=== PATIENT | female | born 1945 | race Caucasian/White ===

== ENCOUNTER 2018-07-10 13:33 | Outpatient (CLI) | payer MEDICARE ==
--- NOTE | 2018-07-30 16:28 | MMO ---
Bilateral MAMMO Bilat Screen [facility]. CLINICAL HISTORY: Patient is 73 years old and is seen for screening. The patient has the following family history of breast cancer: sister, at age 69. The patient has no personal history of cancer. The patient has a history of left MRI guided core biopsy in 2016 - benign. VIEWS: The views performed were: bilateral craniocaudal with tomosynthesis and bilateral mediolateral oblique with tomosynthesis. FILMS COMPARED: The present examination has been compared to prior imaging studies performed at [facility] on 01/31/2012, 02/18/2013, 03/13/2014, 04/07/2016 and 04/03/2017. MAMMOGRAM FINDINGS: There are scattered fibroglandular densities. Finding 1: There are stable intramammary lymph nodes seen in both breasts. Finding 2: There are stable benign appearing calcifications seen in both breasts. There are no suspicious masses, suspicious calcifications, or new areas of architectural distortion. IMPRESSION: THERE IS NO MAMMOGRAPHIC EVIDENCE OF MALIGNANCY. A ROUTINE FOLLOW-UP MAMMOGRAM IN 1 YEAR IS RECOMMENDED. THE RESULTS OF THIS EXAM WERE SENT TO THE PATIENT. ACR BI-RADS Category 2 - Benign finding MAMMOGRAPHY NOTE: 1. A negative mammogram report should not delay a biopsy if a dominant of clinically suspicious mass is present. 2. Approximately 10% to 15% of breast cancers are not detected by mammography. 3. Adenosis and dense breasts may obscure an underlying neoplasm.
== END 2018-07-10 13:34 | disposition home or self-care (01) ==
LOC: BICMAMMO 13:33
PROVIDERS: ATTEND Physician Assistant Medical
DX: Z12.31 Encounter for screening mammogram for malignant neoplasm of breast (principal); Z80.3 Family history of malignant neoplasm of breast
CPT/HCPCS: 77063; 77067

== ENCOUNTER 2019-04-15 14:59 | Outpatient (CLI) | payer MEDICARE ==
--- NOTE | 2019-04-15 16:35 | CT ---
CT ABDOMEN AND PELVIS WITH AND WITHOUT IV CONTRAST ORAL CONTRAST WAS GIVEN: Indication: Left groin mass. Left lower quadrant pain and mass. Markers placed in the skin in the lef t lower quadrant. FINDINGS: Lung bases are clear. Review of the liver reveals a nonspecific hypodensity in the dome of the liver measuring in the 7 mm range. This is too small to adequately characterize. The spleen and pancreas are unremarkable. Stomach and duodenum unremarkable. Adrenal glands and kidneys unremarkable. Urinary bladder mildly distended and unremarkable. Small bowel loops appear normal. Colon is unremarkable. Aorta is normal caliber. No evidence of left lower quadrant mass. There are nonspecific inguinal lymph nodes bilaterally which appears symmetric. These inguinal lymph nodes measure up to 1.2 cm on both sides. Images through the pelvis reveal evidence of hysterectomy. IMPRESSION: 1. Tiny nonspecific low density lesion in the dome of the liver. This may represent a small hemangiom a as it does show suggestion of peripheral nodular enhancement. Suggest hepatic ultrasound for correl ation. 2. No acute intraabdominal process. 3. Nonspecific bilateral inguinal lymph nodes as noted above. POS: [facility]
== END 2019-04-15 15:00 | disposition home or self-care (01) ==
LOC: SCSCT 14:59
PROVIDERS: ATTEND Surgery
DX: R19.09 Other intra-abdominal and pelvic swelling, mass and lump (principal); K76.9 Liver disease, unspecified
CPT/HCPCS: 74178

== ENCOUNTER 2019-04-30 06:14 | Outpatient (CLI) | payer MEDICARE ==
[2019-04-30 12:11] LABS: #Basophils 0.1 thou/uL (0.0-0.2); #Eosinphils 0.1 thou/uL (0.0-0.7); #Lymphocytes 2.2 thou/uL (1.20-3.40); #Monocytes 0.6 thou/uL (0.11-0.59); #Neutrophils 3.8 thou/uL (1.40-6.50); %Basophils 0.8 % (0.0-1.0); %Eosinophils 1.4 % (0.0-10.0); %Lymphocytes 32.8 % (21.0-51.0); %Monocytes 8.6 % (0.0-10.0); %Neutrophils 56.5 % (42.0-75.0); Hemoglobin 15.3 g/dL (12.0-16.0); Mean Corpuscular HGB CONC 33.4 g/dL (32.0-36.0); Mean Corpuscular Hemoglobin 29.3 pg (27.0-31.0); Mean Corpuscular Volume 87.8 fL (78.0-98.0); Mean Platelet Volume 8.9 fL (7.4-10.4); Platelet Count 229 thou/uL (130-400); RBC Distribution Width 12.6 % (11.5-14.5); Red Blood Cell (RBC) Count 5.22 mill/uL (4.20-5.40); White Blood Cell (WBC) Count 6.7 thou/uL (4.8-10.8)
[2019-04-30 12:58] LABS: Anion Gap 14 mmol/L (10-20); BUN (Urea Nitrogen) 15 mg/dL (9.8-20.1); Calc. Creatinine Clearance 0 mL/min (70-130); Calcium 9.5 mg/dL (7.8-10.44); Carbon Dioxide 26 mmol/L (23-31); Chloride 105 mmol/L (98-107); Estimated GFR-MDRD 74; Glucose 79 mg/dL (83-110); Potassium 4.3 mmol/L (3.5-5.1); Sodium 141 mmol/L (136-145)
== END 2019-04-30 06:15 | disposition home or self-care (01) ==
LOC: LABBT 06:14
PROVIDERS: ATTEND Surgery
DX: Z01.812 Encounter for preprocedural laboratory examination (principal); K40.90 Unilateral inguinal hernia, without obstruction or gangrene, not specified as recurrent
CPT/HCPCS: 80048; 85025

== ENCOUNTER 2019-05-01 11:16 | Day surgery (SDC) | payer MEDICARE ==
[2019-04-30 09:34] VITALS: BMI 30.2
[~2019-05-01 11:16] MED LIST: Dexamethasone 20 MG/5 ML VIAL ONE; Glycopyrrolate 0.2 MG/ML 5 ML SYRINGE ONE; Ketorolac Tromethamine 30 MG/ML VIAL ONE; Lidocaine 1% PF 5 ML VIAL ONE; Ondansetron PF 4 MG/2 ML Vial ONE; PHENYLEPHRINE-NS 100 MCG/ML 10 ML SYRINGE ONE; PROPOFOL 200 MG/20 ML VIAL ONE; Rocuronium Bromide 10 MG/ML (10ML VIAL) ONE; ePHEDrine/0.9% NaCl/PF SYRINGE 50 mg/10 ml ONE
[2019-05-01] MEDS ORDERED: Bupivacaine 0.25% HCL 30 ML VIAL ONE (13:38)
[2019-05-01] MEDS ORDERED: Lidocaine 2% Jelly 5 ML TUBE ONE (13:46)
[2019-05-01] MEDS ORDERED: Fentanyl 100 MCG/2 ML VIAL ONE ×2 (13:46→15:24)
--- NOTE | 2019-05-01 17:13 | OP ---
DATE OF PROCEDURE: 05/01/2019 PREOPERATIVE DIAGNOSIS: Left inguinal hernia. POSTOPERATIVE DIAGNOSIS: Left inguinal hernia. PROCEDURE PERFORMED: Da Michelle laparoscopic left inguinal hernia repair with mesh, 3DMax large. ANESTHESIA: General. ESTIMATED BLOOD LOSS: Minimal. COMPLICATIONS: None. SPECIMENS: None. FINDINGS: Left inguinal hernia. DESCRIPTION OF PROCEDURE: The patient was taken to the operating room and laid supine on the operating room table. After general anesthetic was obtained, a Mullen was placed. The abdomen was prepped and draped in a sterile fashion. A curved incision was made above the umbilicus, cautery dissected down to the umbilical stalk, it was amputated, exposed a small umbilical defect. This was used for entrance into the abdominal cavity carefully using a Susan clamp. An 11-mm balloon trocar was placed. High-flow pneumoperitoneum was obtained. Left and right abdominal 8-mm robot assist ports were placed. All ports were docked to the robot. The peritoneum was opened in the left groin in the area of the inguinal hernia. The preperitoneal space was dissected all the way to anterior superior iliac crest laterally to pubic tubercle medially. There was a small femoral hernia that was all reduced back into the preperitoneal space. There was a large indirect hernia that was dissected back into the preperitoneal space. The cord structures were cauterized and cut including the round ligament. Large mesh was brought in and the M-labeled medial aspect was placed over pubic tubercle medially. The mesh was laid out laterally to cover the indirect, direct, and femoral areas. The peritoneum was reapproximated using running 3-0 Stratafix. All needles were removed from the abdomen and accounted for. All port sites were infiltrated using local anesthetic. The defect at the umbilicus was closed using interrupted PDS suture. The umbilical stalk was tacked back down using 3-0 Vicryl. The skin was closed using running 4-0 Monocryl and Dermabond. The patient was sent to Recovery in stable condition. All instrument counts, needle counts, and lap counts were correct. Job ID: [id number]
[2019-05-01] MEDS ORDERED: traMADol HCl 50 MG TAB ONE (17:54)
== END 2019-05-01 18:35 | disposition home or self-care (01) ==
LOC: SDC 11:16
PROVIDERS: ATTEND Surgery
PROC: 0YU64JZ Supplement Left Inguinal Region with Synthetic Substitute, Percutaneous Endoscopic Approach (ICD-10-PCS; principal; 2019-05-01)
DX: K40.90 Unilateral inguinal hernia, without obstruction or gangrene, not specified as recurrent (principal); E03.9 Hypothyroidism, unspecified; M19.90 Unspecified osteoarthritis, unspecified site; Z79.899 Other long term (current) drug therapy; Z91.040 Latex allergy status; Z91.041 Radiographic dye allergy status
CPT/HCPCS: C1781; J0690; J1100; J1885; J2001; J2405; J2704; J3010; S0020

== ENCOUNTER 2019-09-25 11:59 | Outpatient (CLI) | payer MEDICARE ==
--- NOTE | 2019-09-25 12:58 | MMO ---
Bilateral MAMMO Bilat Screen [facility]. CLINICAL HISTORY: Patient is 74 years old and is seen for screening. The patient has the following family history of breast cancer: sister, at age 69. The patient has no personal history of cancer. The patient has a history of left MRI guided core biopsy in 2016 - benign. VIEWS: The views performed were: bilateral craniocaudal with tomosynthesis and bilateral mediolateral oblique with tomosynthesis. FILMS COMPARED: The present examination has been compared to prior imaging studies performed at [facility] on 07/10/2018, and at [facility] on 03/31/2016, 04/07/2016 and 04/03/2017. This study has been interpreted with the assistance of computer-aided detection. MAMMOGRAM FINDINGS: There are scattered fibroglandular densities. There are no suspicious masses, suspicious calcifications, or new areas of architectural distortion. A biopsy clip is seen in the left breast. IMPRESSION: THERE IS NO MAMMOGRAPHIC EVIDENCE OF MALIGNANCY. A ROUTINE FOLLOW-UP MAMMOGRAM IN 1 YEAR IS RECOMMENDED. THE RESULTS OF THIS EXAM WERE SENT TO THE PATIENT. ACR BI-RADS Category 1 - Negative MAMMOGRAPHY NOTE: 1. A negative mammogram report should not delay a biopsy if a dominant of clinically suspicious mass is present. 2. Approximately 10% to 15% of breast cancers are not detected by mammography. 3. Adenosis and dense breasts may obscure an underlying neoplasm. Reported by: ROGER ARTEAGA MD Electonically Signed: [id number]
== END 2019-09-25 12:00 | disposition home or self-care (01) ==
LOC: BICMAMMO 11:59
PROVIDERS: ATTEND Physician Assistant Medical
DX: Z12.31 Encounter for screening mammogram for malignant neoplasm of breast (principal); Z80.3 Family history of malignant neoplasm of breast; Z91.89 Other specified personal risk factors, not elsewhere classified
CPT/HCPCS: 77063; 77067

== ENCOUNTER 2025-01-16 12:37 | Outpatient (CLI) | payer MEDICARE | END 2025-01-16 12:38 | disposition home or self-care (01) | LOC: BICMAMMO 12:37 | PROVIDERS: ATTEND Family Medicine | DX: Z12.31 Encounter for screening mammogram for malignant neoplasm of breast (principal); M85.89 Other specified disorders of bone density and structure, multiple sites; Z78.0 Asymptomatic menopausal state; Z80.3 Family history of malignant neoplasm of breast; Z91.89 Other specified personal risk factors, not elsewhere classified | CPT/HCPCS: 77063; 77067; 77080 ==